=== PATIENT | female | born 1980 | race Hispanic/Latino ===

== ENCOUNTER 2019-04-06 09:07 | Outpatient (CLI) | payer OTHER ==
--- NOTE | 2019-04-06 11:09 | ULT ---
TRANSVAGINAL PELVIC ULTRASOUND: HISTORY: Amenorrhea. COMPARISON: None. TECHNIQUE: Real-time greene-scale, color, and spectral analysis of the pelvis was performed, transabdominal and tr ansvaginal approach. FINDINGS: The uterus measures 9.8 x 4 x 5.8 cm. Endometrial thickness is 1.6 cm, abnormally thickened. The ri ght ovary measures 3.1 x 2.9 x 2.6 cm. Flow is unable to be verified due to its posterior location. The left ovary has a 1.5 cm granulated cyst. The left ovary is enlarged with peripheralization of t he follicles. The endometrium is cystic. IMPRESSION: 1. Findings suggestive of cystic endometrial hyperplasia. An endometrial biopsy may be beneficial. 2. Nabothian cyst of the cervix. 3. Poorly evaluated right ovary, as it is posterior. 4. Enlarged left ovary with peripheralization of the follicles can be seen with polycystic ovarian s yndrome. POS: CET
== END 2019-04-06 09:08 | disposition home or self-care (01) ==
LOC: MADULT 09:07
PROVIDERS: ATTEND Family Medicine
DX: N91.1 Secondary amenorrhea (principal); N88.8 Other specified noninflammatory disorders of cervix uteri; N83.8 Other noninflammatory disorders of ovary, fallopian tube and broad ligament
CPT/HCPCS: 76856